=== PATIENT | male | born 1960 | race Caucasian/White ===

== ENCOUNTER 2024-04-27 14:30 | Outpatient (AMB) | payer OTHER, SELFPAY ==
[2024-04-27 14:32] VITALS: BP 126/78; PULSE 69; RESP 16; TEMP 37.1; O2SAT 97; BMI 32.4
--- NOTE | 2024-04-27 14:32 | A.OFFPC_ITS ---
Vital Signs 04/27/24 14:32 Height 5 ft 3.07 in Weight 183 lb 3.2 oz BMI 32.4 BP 126/78 Blood Pressure Location Lt brachial Position Sitting Respiration 16 Pulse 69 Pulse Source Pulse Oximeter Temp 98.7 F Temp Source Oral Pulse Oximetry (%) 97 Oxygen Delivery Method Room Air Intake Visit Reasons: establish care Intake Note: Patient is a new patient here to [facility]. Transferring care from [facility] in [place], [place]. Medical records have been been requested and have been received. 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: No Accompanied by: Self / Same As Patient Allergies No Known Allergies Allergy (Verified 04/27/24 14:50) Medication List - Last Reconciled 04/27/24 by ALYSON Bryson No Known Home Meds Dental Screening Dental Screen Date: 04/27/24 Did you have a dental visit in the last 12 months?: Yes Did you have a dental problem in the last 6 months where you did not have access to dental care?: No Was dental information given to patient?: Patient has dentist HPI establish [facility] HPI Details The patient is a 64-year-old male presenting to establish [facility] Previous PCP: Ivan Green Last visit:December, Last PE: October, Specialist: no OBGYN:n/a Past medical history: Cervical sensation-feels like a nerve being pinched off to the point that he is getting dizzy; this usually resolve with him adjusting his shoulder blades. Cervical xray done at [facility] showed disc space narrowing C5-C7 levels. There is bilateral neural foraminal narrowing on the right C3-C6 levels and on the left at the C5-C6 level from osteophyte formations. Medications: n/a Family HX: n/a Problem: Patient reports that his cervical sensation is not painful. It feels like he is on a motion right and something is cutting off his oxygen to his brain. Reports that he was supposed to see a operating room specialist but has not done this as yet Otherwise he is feeling well Denies chest pain, shortness of breath, heart palpitation Denies change in bowel habits or any urinary symptoms . [facility] Surgical History No pertinent past surgical history Family History Mother No problems noted. Father No problems noted. Son No problems noted. Son No problems noted. 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 1. Little interest or pleasure in doing things: not at all 2. Feeling down, depressed, or hopeless: not at all 3. Trouble falling or staying asleep, or sleeping too much: not at all 4. Feeling tired or having little energy: not at all 5. Poor appetite or overeating: not at all 6. Feeling bad about yourself - or that you are a failure or have let yourself or your family down: not at all 7. Trouble concentrating on things, such as reading the newspaper or watching television: not at all 8. Moving or speaking so slowly that other people could have noticed. Or the opposite - being so fidgety or restless that you have been moving around a lot more than usual: not at all 9. Thoughts that you would be better off or of hurting yourself in some way: not at all Total score: 0 Depression Screening Interpretation: Negative Depression Screening Done: Yes 43389 - PHQ-9 Billing: Yes Source: Developed by Drs. Harsh Manzo, Jada Soto, Rolf Gongora and colleagues, with an educational harsha from [employer]. Thrive Questionnaire Date Thrive assessed: 04/27/24 I am a: Patient What is your living situation today?: I have a steady place to live Within the past 12 months, did the food you bought not last and you didn't have the money to get more?: Never true Within the past 12 months, did you worry whether your food would run out before you got money to buy more?: Never true Do you have trouble paying for medicines?: No Do you have trouble getting transportation to medical appointments?: No Do you have trouble paying your heating and electricity bill?: No Do you have trouble taking care of your child, family member or friend?: No Do you have trouble with day-to-day activities such as bathing, preparing meals, shopping, managing finances, etc.?: No Are you currently unemployed and looking for a job?: No Are you interested in more education?: No Please select the resources that you would like help with: None Currently or been in a relationship where the following occur: No concerns reported THRIVE Score: 0 AUDIT C Alcohol Use Questionnaire (AUDIT-C) 1. How often do you have a drink containing alcohol?: Monthly or less 2. How many drinks containing alcohol do you have on a typical day when you are drinking?: 1 or 2 3. How often do you have six or more drinks on one occasion?: Never Total Score: 1 IDA-7 AMB Questionnaire IDA-7 Date IDA - 7 assessed: 04/27/24 Feeling nervous, anxious, or on edge: 0 = Not at all Not being able to stop or control worryin = Not at all Worrying too much about different things: 0 = Not at all Trouble relaxin = Not at all Being so restless that it is hard to sit still: 0 = Not at all Becoming easily annoyed or irritable: 0 = Not at all Feeling afraid as if something awful might happen: 0 = Not at all Total IDA-7 score (0-4 normal; 5-9 mild; 10-14 moderate; 15-21 severe): 0 Source: Developed by Drs. Harsh Manzo, Jada Soto, Rolf Gongora and colleagues, with an educational harsha from [employer]. IDA-7 Assessment Billing IDA-7 Assessment Tool: IDA-7 Assessment 18974 Review of Systems Const Denies headache(s) Eyes Denies loss of vision ENT Reports dizziness (with cervical discomfort), Denies headache(s) and Denies sore throat Card Denies chest pain, Denies leg edema and Denies lightheadedness Resp Denies cough, Denies hemoptysis and Denies wheezing GI Denies abdominal pain, Denies melena, Denies constipation, Denies diarrhea and Denies vomiting Denies dysuria, Denies urinary frequency and Denies urinary urgency Musc Denies arthralgias, Denies joint swelling, Denies numbness and Denies tingling Neuro Denies Abnormal speech present, Denies behavioral changes, Reports dizziness (with cervical discomfort), Denies headache(s), Denies loss of vision, Denies memory loss, Denies numbness and Denies tingling Psych Denies anxiety, Denies behavioral changes, Denies depression, Denies memory loss and Denies panic attacks Will/Lymph Denies easy bleeding and Denies easy bruising Aller/Immun Denies wheezing Physical exam (Primary Care) Vital Signs: Last Vital Signs Temp 98.7 F 04/27/24 14:32 Pulse 69 04/27/24 14:32 Resp 16 04/27/24 14:32 BP 126/78 04/27/24 14:32 Pulse Ox 97 04/27/24 14:32 Oxygen Delivery Method Room Air 04/27/24 14:32 BMI result Body Mass Index 32.4 Tobacco/Smoking Status: Tobacco use Status Patient Tobacco Use Status Never used Tobacco 04/27/24 14:47 e-Cigarette/Vaping Use Never Used 04/27/24 14:47 PHQ-9: PHQ-9 Score PHQ-9: Total score 0 04/27/24 14:56 Depression Screening Interpretation: Negative Thrive Assessment: Date of Thrive Assessment Date Thrive assessed 04/27/24 04/27/24 14:37 Currently or been in a relationship where the following occur: No concerns reported Const General: healthy appearing, no acute distress, alert and awake Nutritional Appearance: well nourished Orientation/consciousness: oriented to person, oriented to place and oriented to time [facility] Ears: TM's normal bilaterally General nose exam: Normal nasal mucous membranes and turbinates present Eyes Conjunctivae: conjunctivae normal Sclerae: sclerae normal Pupils: Equal, round and reactive pupils present Neck Neck: Yes no lymphadenopathy and Yes no JVD Thyroid: Thyroid normal Carotids: no bruits Resp Effort & Inspection: normal respiratory effort and not tachypneic Auscultation: no crackles, no rales, no rhonchi and no wheezes Cardio Rate: regular rate Rhythm: regular rhythm Heart sounds: no murmurs and normal S1 and S2 GI Palpation (GI): Soft to palpation, nontender, no hepatomegaly and no splenomegaly Auscultation: normal bowel sounds Back/Spine/Pelvis Cervical Spine: No Cervical spine tenderness and other (forward head) Thoracic/Lumbar Spine: No thoracic spinal tenderness and No lumbar spinal tenderness Skin General skin exam: no rashes or lesions noted and dry skin Neuro General: oriented to person, oriented to place and oriented to time Cranial nerves: Yes Equal, round and reactive pupils present Speech: No Abnormal speech present Gait exam (Neuro): Normal gait present Motor exam (neuro): no tremor noted Extrem Right upper extremity: full ROM Left upper extremity: full ROM Right lower extremity: full ROM; no edema Left lower extremity: full ROM; no edema Psych Mental Status: mental status grossly normal Speech and movement: Normal speech and movement present Affect: normal affect Attitude: cooperative Thought process: Normal thought process present Coding Level of Care Code New Pt Level 3 (92672) Diagnoses Spinal stenosis of cervical region M48.02 Spinal region: cervical Pure hyperglyceridemia E78.1 Additional Codes IDA-7 Assessment Billing - IDA-7 Assessment Tool: IDA-7 Assessment 28212 ([id number]) PHQ-9 - 94622 - PHQ-9 Billing: Yes ([id number]) Time Spent (min) 37 Assessment & Plan Assessment & Plan (1) Spinal stenosis: Code(s): M48.00 - Spinal stenosis, site unspecified Category: Medical Qualifiers: Spinal region: cervical Qualified Code(s): M48.02 - Spinal stenosis, cervical region Plan: The patient reports feeling like he has pinched nerve impeding his oxygen to his brain Cervical xray done at [facility] showed disc space narrowing C5-C7 levels. There is bilateral neural foraminal narrowing on the right C3-C6 levels and on the left at the C5-C6 level from osteophyte formations. Referred to neuro spine (2) Pure hyperglyceridemia: Code(s): E78.1 - Pure hyperglyceridemia Category: Medical Plan: Elevated NON HDL cholesterol on previous labs Diet/exercise discussed in detail Encouraged to exercise for at least 30 minutes a day/5 days a week Healthy eating discussed. Encouraged to eat fruits/vegetables, protein- fish/baked chicken, and to avoid salty/fried foods, sweets, caffeine and carbohydrates. Encouraged to increase water intake 6-8 glasses a day Will recheck lipid panel Orders: Orders Lipid Panel 04/27/24 E78.00 - Pure hypercholesterolemia, unspecified, M47.812 - Spondylosis without myelopathy or radiculopathy, cervical region, R73.03 - Prediabetes UA CC w/rflx Micro + Cult 04/27/24 E78.00 - Pure hypercholesterolemia, unspecified, M47.812 - Spondylosis without myelopathy or radiculopathy, cervical region, R73.03 - Prediabetes Complete Blood Count Auto Diff 04/27/24 E78.00 - Pure hypercholesterolemia, unspecified, M47.812 - Spondylosis without myelopathy or radiculopathy, cervical region, R73.03 - Prediabetes Comprehensive [place]. Panel Fast 04/27/24 E78.00 - Pure hypercholesterolemia, unspecified, M47.812 - Spondylosis without myelopathy or radiculopathy, cervical region, R73.03 - Prediabetes Vitamin D 25-OH Total 04/27/24 E78.00 - Pure hypercholesterolemia, unspecified, M47.812 - Spondylosis without myelopathy or radiculopathy, cervical region, R73.03 - Prediabetes TSH reflex Free T4 04/27/24 E78.00 - Pure hypercholesterolemia, unspecified, M47.812 - Spondylosis without myelopathy or radiculopathy, cervical region, R73.03 - Prediabetes Referrals Neuro Spine Referral M48.02 - Spinal stenosis, cervical region
== END 2024-04-27 15:22 | disposition home or self-care (01) ==
LOC: HO.HMCH 14:30
DX: M48.02 Spinal stenosis, cervical region (principal); E78.1 Pure hyperglyceridemia

== ENCOUNTER → 2024-04-27 14:30 | Outpatient (BNVA) | payer OTHER, SELFPAY | DX: M48.02 Spinal stenosis, cervical region (principal); E78.1 Pure hyperglyceridemia | CPT/HCPCS: 96127 ==

== ENCOUNTER 2024-06-07 10:52 | Outpatient (REF) | payer OTHER, SELFPAY ==
[2024-06-07 11:11] LABS: MANUAL DIFF FLAG NO
[2024-06-07 11:39] LABS: Basophils Percent Auto 0.7 % (0-2); Eosinophils Absolute Auto 0.1 X10*3/uL (0.0-0.4); Eosinophils Percent Auto 1.1 % (0-4); Hematocrit 39.1 % (42.0-52.0); Hemoglobin 13.4 g/dl (14.0-18.0); Lymphocytes Absolute Auto 1.5 X10*3/uL (1.2-4.9); Lymphocytes Percent Auto 35.2 % (20-40); Mean Corpuscular HGB Conc 34.3 g/dl (31.0-36.0); Mean Corpuscular Hemoglobin 30.5 pg (27.0-33.0); Mean Corpuscular Volume 88.9 fL (80.0-98.0); Mean Platelet Volume 9.5 fL (9.4-12.4); Monocytes Absolute Auto 0.4 X10*3/uL (0.1-1.2); Monocytes Percent Auto 8.7 % (2-11); Neutrophils Absolute Auto 2.4 x10*3/uL (2.0-8.3); Neutrophils Percent Auto 54.3 % (45-73); Platelet Count 208 X10*3/uL (160-400); Red Cell Distribution Width 12.8 % (11.0-16.0); White Blood Count 4.4 X10*3/uL (4.8-10.8)
[2024-06-07 11:46] LABS: Appearance Urine Clear; Color Urine Yellow; Glucose Urine UA Negative (Negative); Leukocyte Esterase Urine Moderate (2+) (Negative); Nitrite Urine Negative (Negative); PH 5.5 (5.0-9.0); UMIC TRIGGER UACC YES; Urine Blood Negative (Negative); Urine Ketones Negative (Negative); Urine Protein Negative (Neg-Trace)
[2024-06-07 12:05] LABS: Bacteria Urine None Seen (None Seen); Hyaline Casts Urine 0-2 /LPF (0-2); RBC Urine 0-2 /HPF (0-2); Squamous Epithelial Cell Urine 0-2 /HPF (0-2); UACC Culture Trigger YES
[2024-06-07 12:37] LABS: Alanine Aminotransferase 19 U/L (0-40); Albumin Level 4.1 g/dL (3.5-5.0); Alkaline Phosphatase 63 U/L (39-117); Anion Gap 9 (12-20); Aspartate Amino Transferase 23 U/L (5-37); Bilirubin Total 0.4 mg/dL (0.0-1.0); Blood Urea Nitrogen 20 mg/dL (9-16); Calcium 8.8 mg/dL (8.4-10.2); Carbon Dioxide 27 mmol/L (22-29); Chloride 106 mmol/L (96-108); Cholesterol 184 mg/dL (<200); Estimated Glomerular Filt Rate > 60; Glucose Fasting 97 mg/dL (60-99); HDL Cholesterol 56 mg/dL (>40); LDL Cholesterol Calculated 119 mg/dL (<100); Potassium 4.3 mmol/L (3.3-5.1); Sodium 138 mmol/L (135-145); Total Protein 7.1 g/dL (6.5-8.0); Triglycerides 45 mg/dL (<150)
[2024-06-07 12:51] LABS: TSH reflex Free T4 0.37 uIU/mL (0.32-4.0); Vitamin D 25-OH Total 34.6 ng/mL (>30)
== END 2024-06-07 10:53 | disposition home or self-care (01) ==
LOC: HO.LAB 10:52
DX: E78.00 Pure hypercholesterolemia, unspecified (principal); R73.03 Prediabetes; M47.812 Spondylosis without myelopathy or radiculopathy, cervical region
CPT/HCPCS: 36415; 80053; 80061; 81001; 82306; 84443; 85025; 87086

== ENCOUNTER 2024-06-08 14:34 | Outpatient (AMB) | payer OTHER, SELFPAY ==
[2024-06-08 14:40] VITALS: BP 140/86; PULSE 67; RESP 18; TEMP 37.2; O2SAT 96; BMI 32.6
--- NOTE | 2024-06-08 14:40 | A.OFFPC_ITS ---
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 [facility] Surgical History No pertinent past surgical history Family History Mother No problems noted. Father No problems noted. Son No problems noted. Son No problems noted. 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- [employer] Cognitive needs: No Hearing needs: No Vision needs: Yes (Reading glasses) Questionnaire Thrive Questionnaire Date Thrive assessed: 06/08/24 I am a: Patient What is your living situation today?: I have a steady place to live Within the past 12 months, did the food you bought not last and you didn't have the money to get more?: Never true Within the past 12 months, did you worry whether your food would run out before you got money to buy more?: Never true Do you have trouble paying for medicines?: No Do you have trouble getting transportation to medical appointments?: No Do you have trouble paying your heating and electricity bill?: No Do you have trouble taking care of your child, family member or friend?: No Do you have trouble with day-to-day activities such as bathing, preparing meals, shopping, managing finances, etc.?: No Are you currently unemployed and looking for a job?: No Are you interested in more education?: No Please select the resources that you would like help with: None Currently or been in a relationship where the following occur: No concerns reported THRIVE Score: 0 AUDIT C Alcohol Use Questionnaire (AUDIT-C) 1. How often do you have a drink containing alcohol?: 2-4 times a month 2. How many drinks containing alcohol do you have on a typical day when you are drinking?: 1 or 2 3. How often do you have six or more drinks on one occasion?: Never Total Score: 2 Score Reviewed/Action Taken: No IDA-7 AMB Questionnaire IDA-7 Date IDA - 7 assessed: 04/27/24 Source: Developed by Drs. Harsh Manzo, Jada Soto, Rolf Gongora and colleagues, with an educational harsha from [employer]. Physical exam (Primary Care) Vital Signs: Last Vital Signs Temp 99.0 F 06/08/24 14:40 Pulse 67 06/08/24 14:40 Resp 18 06/08/24 14:40 BP 140/86 H 06/08/24 14:40 Pulse Ox 96 06/08/24 14:40 Oxygen Delivery Method Room Air 06/08/24 14:40 BMI result Body Mass Index 32.6 Tobacco/Smoking Status: Tobacco use Status Tobacco use date assessed 06/08/24 06/08/24 14:42 Patient Tobacco Use Status Never used Tobacco 06/08/24 14:42 e-Cigarette/Vaping Use Never Used 06/08/24 14:42 Thrive Assessment: Date of Thrive Assessment Date Thrive assessed 06/08/24 06/08/24 14:42 Currently or been in a relationship where the following occur: No concerns reported Results AMB Hemoglobin A1c AMB Hemoglobin A1c 5.3 % Last Edit by Shona Monsalve CMA on 06/08/24 14:56 Coding Assessment & Plan Assessment & Plan Orders: Orders IRON PROFILE 3 Months E78.1 - Pure hyperglyceridemia, M48.02 - Spinal stenosis, cervical region, R73.03 - Prediabetes Complete Blood Count Auto Diff 3 Months E78.1 - Pure hyperglyceridemia, M48.02 - Spinal stenosis, cervical region, R73.03 - Prediabetes TSH reflex Free T4 3 Months E78.1 - Pure hyperglyceridemia, M48.02 - Spinal stenosis, cervical region, R73.03 - Prediabetes AMB Hemoglobin A1c Today R73.03 - Prediabetes Comprehensive [place]. Panel Fast 3 Months E78.1 - Pure hyperglyceridemia, M48.02 - Spinal stenosis, cervical region, R73.03 - Prediabetes Lipid Panel 3 Months E78.1 - Pure hyperglyceridemia, M48.02 - Spinal stenosis, cervical region, R73.03 - Prediabetes UA CC w/rflx Micro + Cult 3 Months E78.1 - Pure hyperglyceridemia, M48.02 - Spinal stenosis, cervical region, R73.03 - Prediabetes
[2024-06-08 15:05] VITALS: BP 138/84
== END 2024-06-08 15:20 | disposition home or self-care (01) ==
LOC: HO.HMCH 14:35
DX: R73.03 Prediabetes (principal)

== ENCOUNTER → 2024-06-08 14:34 | Outpatient (BNVA) | payer OTHER, SELFPAY | DX: E78.1 Pure hyperglyceridemia (principal); M47.812 Spondylosis without myelopathy or radiculopathy, cervical region; M48.02 Spinal stenosis, cervical region; R73.03 Prediabetes | CPT/HCPCS: 83036 ==

== ENCOUNTER 2024-06-27 14:02 | Outpatient (RCR) | payer OTHER, SELFPAY ==
--- NOTE | 2024-06-27 15:41 | MHC.PT.EP ---
[facility] [place] Office [place] [facility] [place] Office [address] Chaka Soto [address] [phone] F: [phone] F: [phone] F: [phone] F: [phone] Physical Therapy Plan of Care Date of Evaluation: 06/27/24 Date of Surgery: Diagnosis: cervical spinal stenosis (RS) Assessment: Moses Carrero is a pleasant, motivated 64 y.o. male who is referred to PT by Kennedy Fontenot NP with Dx of cervical spinal stenosis. His impairments include shoulder girdle muscle imabalances with overuse of UTs and weakness in middle and lower trapezius muscles, mild weakness and impingement in R shoulder, limited cervical AROM, hypomobility in both cervical spine and thoracic spine. His current functional limitations are pain and difficulty with prolonged sitting, prolonged standing for work tasks. Patient will benefit from skilled PT to address aforementioned impairments and functional limitations to meet established goals. Frequency and Duration: The patient will be seen 1x/week for 4 weeks Short Term Goals: 2 weeks Patient demonstrates consistency and independence with HEP to self manage symptoms. 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 Moses presents with increased middle trap strength 4/5 to be able to sit for prolonged periods of time at work without neck pain/strain. Treatment Plan: Modalities to reduce pain, spasms and effusion. Manual therapy to restore motion and function. Therapeutic exercise to improve strength and flexibility. Neuromuscular re-education for posture and balance. Therapeutic activities to return to functional activities of daily living. Electronically signed by: Savannah Garcia, PT, DPT Please sign and return to therapist. Thank you for your referral.
--- NOTE | 2024-08-29 10:58 | MHC.PT.DC ---
[facility] [place] Office [place] Office [place] Office [address] Chaka Soto [address] [phone] F: [phone] F: [phone] F: [phone] F: [phone] Physical Therapy Discharge Report Diagnosis: cervical spinal stenosis (RS) Date of Surgery: Date of Evaluation: 06/27/24 Date of Discharge: 08/29/24 Treatments to Date: 1 Cancellations to Date: 4 No Shows to Date: 0 Discharge Status: Visit Non-compliance Discharge Summary: Moses Carrero was only seen for the initial PT evaluation and he cancelled all him remaining visits. Therefore I am unable to determine effectiveness of PT interventions on his condition. He is discharged from PT. Electronically signed by: Savannah Garcia, PT, DPT Please sign and return to therapist. Thank you for your referral.
== END 2024-08-29 10:58 | disposition home or self-care (01) ==
LOC: HO.PT 14:02
DX: M48.02 Spinal stenosis, cervical region (principal)
CPT/HCPCS: 97110; 97161

== ENCOUNTER 2024-12-20 08:56 | Outpatient (REF) | payer OTHER, SELFPAY ==
[2024-12-20 09:15] LABS: MANUAL DIFF FLAG NO
[2024-12-20 09:49] LABS: Hematocrit 41.9 % (42.0-52.0); Hemoglobin 13.9 g/dl (14.0-18.0); Imm Gran Abs Auto 0.01 X10*3/uL (0.00-0.03); Imm Gran Pct Auto 0.2 % (0.0-0.4); Lymphocytes Absolute Auto 1.7 X10*3/uL (1.2-4.9); Mean Corpuscular HGB Conc 33.2 g/dl (31.0-36.0); Mean Corpuscular Hemoglobin 29.6 pg (27.0-33.0); Mean Corpuscular Volume 89.1 fL (80.0-98.0); NRBC Abs Auto 0.000 X10*3/uL (0.0-0.012); NRBC Pct Auto 0.0 /100WBC (0.0-0.2); Platelet Count 206 X10*3/uL (160-400); Red Blood Count 4.70 X10*6/uL (4.60-5.80); White Blood Count 5.8 X10*3/uL (4.8-10.8)
[2024-12-20 09:55] LABS: Appearance Urine Clear; Glucose Urine UA Negative (Negative); PH 5.5 (5.0-9.0); Specific Gravity - Urine 1.015 (1.005-1.025); UMIC TRIGGER UACC YES
[2024-12-20 10:14] LABS: UACC Culture Trigger YES
[2024-12-20 10:53] LABS: Alanine Aminotransferase 20 U/L (0-40); Albumin Level 4.3 g/dL (3.5-5.0); Alkaline Phosphatase 72 U/L (39-117); Anion Gap 11 (12-20); Aspartate Amino Transferase 22 U/L (5-37); Blood Urea Nitrogen 20 mg/dL (9-16); Calcium 8.9 mg/dL (8.4-10.2); Carbon Dioxide 24 mmol/L (22-29); Chloride 107 mmol/L (96-108); Cholesterol 192 mg/dL (<200); Estimated Glomerular Filt Rate > 60; HDL Cholesterol 52 mg/dL (>40); Iron 83 mcg/dL (45-160); Percent Iron Saturation 32 % (15-50); Potassium 4.4 mmol/L (3.3-5.1); Sodium 138 mmol/L (135-145); Total Iron Binding Capacity 259 mcg/dL (228-428); Total Protein 7.4 g/dL (6.5-8.0); Triglycerides 43 mg/dL (<150); Unsaturated Iron Binding 176 ug/dL
== END 2024-12-20 08:57 | disposition home or self-care (01) ==
LOC: HO.LAB 08:56
DX: M48.02 Spinal stenosis, cervical region (principal); E78.1 Pure hyperglyceridemia; R73.03 Prediabetes
CPT/HCPCS: 36415; 80053; 80061; 81001; 83540; 84443; 85025; 87086

== ENCOUNTER 2024-12-21 15:48 | Outpatient (AMB) | payer OTHER, SELFPAY ==
[2024-12-21 15:50] VITALS: BP 148/80; PULSE 85; RESP 18; TEMP 36.3; O2SAT 98; BMI 32.6
--- NOTE | 2024-12-21 15:50 | A.OFFPC_ITS ---
Vital Signs 12/21/24 15:50 12/21/24 16:40 Height 5 ft 3 in Weight 184 lb BMI 32.6 BP 148/80 H 138/88 Blood Pressure Location Lt brachial Lt brachial Position Sitting Sitting Respiration 18 Pulse 85 Pulse Source Pulse Oximeter Temp 97.3 F Temp Source Temporal Artery Scan Pulse Oximetry (%) 98 Oxygen Delivery Method Room Air Intake Visit Reasons: elevated/elevated ldl Deputy General Counsel Required: No Accompanied by: Self / Same As Patient Allergies No Known Allergies Allergy (Verified 12/25/24 19:58) Medication List - Last Reconciled 12/25/24 by ALYSON Bryson No Known Home Meds Tobacco use date assessed: 12/21/24 Dental Screening Dental Screen Date: 12/21/24 Did you have a dental visit in the last 12 months?: Yes Did you have a dental problem in the last 6 months where you did not have access to dental care?: No Was dental information given to patient?: Patient has dentist HPI elevated/elevated ldl HPI Details The patient is a 64-year-old male presenting for a follow-up visit to review lab results. He reports experiencing neck stiffness, which he attributes to his job, but denies any radiating pain down his arms. Lab results were reviewed, showing a slight improvement in his red blood cell count, though he remains slightly anemic. His BUN is elevated, which is attributed to dehydration, and he acknowledges needing to drink more water. Kidney function, including creatinine and GFR, is normal, and liver function tests are good. His fasting glucose was 97, and his A1c is 5.3, which is within the normal range. The patient's mother has a history of type 2 diabetes since she was 40 years old. His father has a history of macular degeneration and had shingles in one eye which led to vision loss. The patient reports getting his eyes checked in August. Regarding his diet, the patient primarily eats grilled chicken and some steak, and he avoids fried foods. He is very active at his job, walking on average 4-6 miles per day, which includes going up and down stairs. [facility] Surgical History No pertinent past surgical history Family History Mother No problems noted. Father No problems noted. Son No problems noted. Son No problems noted. 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- [employer] Cognitive needs: No Hearing needs: No Vision needs: Yes (Reading glasses) Questionnaire Thrive Questionnaire Date Thrive assessed: 04/27/24 I am a: Patient What is your living situation today?: I have a steady place to live Within the past 12 months, did the food you bought not last and you didn't have the money to get more?: Never true Within the past 12 months, did you worry whether your food would run out before you got money to buy more?: Never true Do you have trouble paying for medicines?: No Do you have trouble getting transportation to medical appointments?: No Do you have trouble paying your heating and electricity bill?: No Do you have trouble taking care of your child, family member or friend?: No Do you have trouble with day-to-day activities such as bathing, preparing meals, shopping, managing finances, etc.?: No Are you currently unemployed and looking for a job?: No Are you interested in more education?: No Please select the resources that you would like help with: None Currently or been in a relationship where the following occur: No concerns reported THRIVE Score: 0 IDA-7 AMB Questionnaire IDA-7 Date IDA - 7 assessed: 04/27/24 Source: Developed by Drs. Harsh Manzo, Jada Soto, Rolf Gongora and colleagues, with an educational harsha from [employer]. Review of Systems Const Denies headache(s) Eyes Denies loss of vision ENT Denies vertigo, Denies dizziness, Denies headache(s), Reports neck pain (intermittently) and Denies sore throat Card Denies chest pain, Denies leg edema and Denies lightheadedness Resp Denies cough, Denies hemoptysis and Denies wheezing GI Denies abdominal pain, Denies melena, Denies constipation, Denies diarrhea and Denies vomiting Denies dysuria, Denies urinary frequency and Denies urinary urgency Musc Denies arthralgias, Denies joint swelling, Reports neck pain (intermittently), Denies numbness and Denies tingling Neuro Denies Abnormal speech present, Denies behavioral changes, Denies vertigo, Denies dizziness, Denies headache(s), Denies loss of vision, Denies memory loss, Denies numbness and Denies tingling Psych Denies anxiety, Denies behavioral changes, Denies depression, Denies memory loss and Denies panic attacks Will/Lymph Denies easy bleeding and Denies easy bruising Aller/Immun Denies wheezing Physical exam (Primary Care) Vital Signs: Last Vital Signs Temp 97.3 F 12/21/24 15:50 Pulse 85 12/21/24 15:50 Resp 18 12/21/24 15:50 BP 138/88 12/21/24 16:40 Pulse Ox 98 12/21/24 15:50 Oxygen Delivery Method Room Air 12/21/24 15:50 BMI result Body Mass Index 32.6 Tobacco/Smoking Status: Tobacco use Status Tobacco use date assessed 12/21/24 12/21/24 16:12 Patient Tobacco Use Status Never used Tobacco 12/21/24 15:56 e-Cigarette/Vaping Use Never Used 12/21/24 15:56 Thrive Assessment: Date of Thrive Assessment Date Thrive assessed 04/27/24 12/21/24 15:56 Currently or been in a relationship where the following occur: No concerns reported Const General: healthy appearing, no acute distress, alert and awake Nutritional Appearance: well nourished Orientation/consciousness: oriented to person, oriented to place and oriented to time [facility] Ears: TM's normal bilaterally General nose exam: Normal nasal mucous membranes and turbinates present Eyes Conjunctivae: conjunctivae normal Sclerae: sclerae normal Pupils: Equal, round and reactive pupils present Neck Neck: Yes no lymphadenopathy and Yes no JVD Thyroid: Thyroid normal Carotids: no bruits Resp Effort & Inspection: normal respiratory effort and not tachypneic Auscultation: no crackles, no rales, no rhonchi and no wheezes Cardio Rate: regular rate Rhythm: regular rhythm Heart sounds: no murmurs and normal S1 and S2 GI Palpation (GI): Soft to palpation, nontender, no hepatomegaly and no splenomegaly Auscultation: normal bowel sounds Skin General skin exam: no rashes or lesions noted and dry skin Neuro General: oriented to person, oriented to place and oriented to time Cranial nerves: Yes Equal, round and reactive pupils present Speech: No Abnormal speech present Gait exam (Neuro): Normal gait present Motor exam (neuro): no tremor noted Extrem Right upper extremity: full ROM Left upper extremity: full ROM Right lower extremity: full ROM; no edema Left lower extremity: full ROM; no edema Psych Mental Status: mental status grossly normal Speech and movement: Normal speech and movement present Affect: normal affect Attitude: cooperative Thought process: Normal thought process present Results Reviewed Results Reviewed: Laboratory Tests 12/20/24 12/20/24 09:10 09:13 WBC 5.8 RBC 4.70 Hgb 13.9 L Hct 41.9 L MCV 89.1 MCH 29.6 MCHC 33.2 RDW 12.5 Plt Count 206 Sodium 138 Potassium 4.4 Chloride 107 Carbon Dioxide 24 Anion Gap 11 L BUN 20 H Creatinine 0.96 Estimated GFR > 60 Fasting Glucose 97 Calcium 8.9 Iron 83 TIBC 259 % Saturation 32 Unsat Iron Binding 176 Total Bilirubin 0.5 AST 22 ALT 20 Alkaline Phosphatase 72 Total Protein 7.4 Albumin 4.3 Triglycerides 43 Cholesterol 192 LDL Cholesterol, Calc 132 H HDL Cholesterol 52 TSH 0.35 Urine Color Yellow Urine Appearance Clear Urine pH 5.5 Ur Specific [place] 1.015 Urine Protein Negative Urine Glucose (UA) Negative Urine Ketones Negative Urine Blood Negative Urine Nitrite Negative Ur Leukocyte Esterase Small (1+) H Urine RBC 0-2 Urine WBC 0-5 Ur Squamous Epith Cells 0-2 Urine Bacteria None Seen Hyaline Casts 0-2 Coding Level of Care Code Est Pt Level 3 (09512) Diagnoses Pure hyperglyceridemia E78.1 Spinal stenosis of cervical region M48.02 Spinal region: cervical Elevated blood pressure reading in office without diagnosis of hypertension R03.0 Anemia, unspecified type D64.9 Anemia type: unspecified type Time Spent (min) 29 Assessment & Plan Assessment & Plan (1) Pure hyperglyceridemia: Code(s): E78.1 - Pure hyperglyceridemia Category: Medical Plan: The patient's LDL cholesterol is elevated. The current level is not high enough to warrant starting medication immediately; instead, the plan is to focus on dietary management. Dietary recommendations include avoiding fried foods, red meats, and pork. A follow-up with repeat labs is scheduled for approximately three months to reassess. (2) Spinal stenosis: Code(s): M48.00 - Spinal stenosis, site unspecified Category: Medical Qualifiers: Spinal region: cervical Qualified Code(s): M48.02 - Spinal stenosis, cervical region Plan: The patient's blood pressure was measured at 138/88 mmHg, which is considered elevated but not critically high. The goal is to lower it to be closer to 130/80 mmHg. The initial plan is to manage this with lifestyle and dietary changes, with medication considered a last resort. The patient states he does not use much salt in his food. This will be re-evaluated at the follow-up appointment in three months. The patient will continue conservative treatment like warm/cold compresses on for 20 minute intervals. Continue otc pain medications and neck stretches, and maintaining proper spine alignment. (3) Elevated blood pressure reading in office without diagnosis of hypertension: Code(s): R03.0 - Elevated blood-pressure reading, without diagnosis of hypertension Category: Medical Plan: The patient's blood pressure was measured at 138/88 mmHg, which is considered elevated but not critically high. The goal is to lower it to be closer to 130/80 mmHg. The initial plan is to manage this with lifestyle and dietary changes, with medication considered a last resort. The patient states he does not use much salt in his food. This will be re-evaluated at the follow-up appointment in three months. (4) Anemia: Code(s): D64.9 - Anemia, unspecified Category: Medical Qualifiers: Anemia type: unspecified type Qualified Code(s): D64.9 - Anemia, unspecified Plan: mild microcytic, hypochromic anemia. Will continue to monitor CBC. Orders: Orders Lipid Panel 3 Months E78.00 - Pure hypercholesterolemia, unspecified, E78.1 - Pure hyperglyceridemia, M48.02 - Spinal stenosis, cervical region, R73.03 - Prediabetes UA CC w/rflx Micro + Cult 3 Months E78.00 - Pure hypercholesterolemia, unspecified, E78.1 - Pure hyperglyceridemia, M48.02 - Spinal stenosis, cervical region, R73.03 - Prediabetes Complete Blood Count Auto Diff 3 Months E78.00 - Pure hypercholesterolemia, unspecified, E78.1 - Pure hyperglyceridemia, M48.02 - Spinal stenosis, cervical region, R73.03 - Prediabetes Comprehensive [place]. Panel Fast 3 Months E78.00 - Pure hypercholesterolemia, unspecified, E78.1 - Pure hyperglyceridemia, M48.02 - Spinal stenosis, cervical region, R73.03 - Prediabetes TSH reflex Free T4 3 Months E78.00 - Pure hypercholesterolemia, unspecified, E78.1 - Pure hyperglyceridemia, M48.02 - Spinal stenosis, cervical region, R73.03 - Prediabetes Hemoglobin A1c 3 Months R73.03 - Prediabetes
[2024-12-21 16:40] VITALS: BP 138/88
== END 2024-12-21 16:47 | disposition home or self-care (01) ==
LOC: HO.HMCH 15:48
DX: E78.1 Pure hyperglyceridemia (principal); M48.02 Spinal stenosis, cervical region; R03.0 Elevated blood-pressure reading, without diagnosis of hypertension; D64.9 Anemia, unspecified